=== PATIENT | female | born 1980 | race Two or more races ===

== ENCOUNTER → 2018-01-27 05:41 | Outpatient (CLI) | payer OTHER | END | disposition home or self-care (01) | LOC: OBT 01-26 22:05 | DX: O62.9 Abnormality of forces of labor, unspecified (principal); O34.219 Maternal care for unspecified type scar from previous cesarean delivery; O24.419 Gestational diabetes mellitus in pregnancy, unspecified control; O09.523 Supervision of elderly multigravida, third trimester; Z3A.38 38 weeks gestation of pregnancy | CPT/HCPCS: 36415; 81001; 81003; 96360; 96361; 96372 ==

== ENCOUNTER 2018-01-27 14:41 | Inpatient (IN) | payer OTHER ==
[2018-01-27 17:30] LABS: ADD MAN DIFF? NO
[2018-01-27] MEDS ORDERED: METHYLERGONOVINE 0.2 MG INJ IM (17:30)
[2018-01-27] MEDS ORDERED: OXYTOCIN 30 UNITS/LR 500 ML IV ×2 (17:30→20:06)
[2018-01-27] MEDS: LACTATED RINGER'S 1,000 ML IV (17:30)
[2018-01-27] MEDS ORDERED: CARBOPROST 250 MCG INJ IM (17:30)
[2018-01-27] MEDS ORDERED: MISOPROSTOL 200 MCG TAB PR (17:30)
[2018-01-27 17:32] LABS: BASOPHILS % 0.3 % (0.0-2.0); EOSINOPHILS % 0.6 % (0.0-7.0); HEMATOCRIT 36.3 % (37.0-47.0); HEMOGLOBIN 12.5 g/dl (12.0-16.0); LYMPHOCYTES # 1.9 10^3/ul (0.8-2.9); LYMPHOCYTES % 27.4 % (15.0-51.0); MEAN CORPUSCULAR HEMOGLOBIN 29.3 pg (29.0-33.0); MEAN CORPUSCULAR HGB CONC 34.4 g/dl (32.0-37.0); MEAN PLATELET VOLUME 10.6 fl (7.4-10.4); MONOCYTE # 0.6 10^3/ul (0.3-0.9); MONOCYTES % 8.8 % (0.0-11.0); NEUTROPHIL # 4.2 10^3/ul (1.6-7.5); NEUTROPHILS % 61.7 % (39.0-77.0); PLATELET COUNT 210 10^3/UL (140-415); RED BLOOD COUNT 4.27 10^6/ul (4.20-5.40); RED CELL DISTRIBUTION WIDTH 13.9 % (11.5-14.5)
[2018-01-27 17:32] LABS: WHITE BLOOD COUNT 6.8 10^3/ul (4.8-10.8)
[2018-01-27 17:51] LABS: INR 0.91; PROTIME 12.3 Sec (11.9-14.9)
[2018-01-27 17:53] LABS: PARTIAL THROMBOPLASTIN TIME 28.3 Sec (25.0-35.0)
[2018-01-27 18:20] LABS: HEPATITIS B SURFACE ANTIGEN NEGATIVE (NEGATIVE)
[2018-01-27] MEDS ORDERED: EPHEDrine SULFATE 50 MG/5 ML SYG (20:06)
[2018-01-27] MEDS ORDERED: OXYTOCIN 10 UNIT INJ ×2 (20:07→20:13)
[2018-01-27] MEDS ORDERED: METOCLOPRAMIDE 10 MG INJ (20:07)
[2018-01-27] MEDS ORDERED: ONDANSETRON 4 MG INJ (20:07)
[2018-01-27] MEDS ORDERED: morphine SULFATE/PF (10 MG/10 ML) INJ (20:07)
[2018-01-27] MEDS ORDERED: BUPIVACAINE 0.75%/DEXT (SPINAL) 2 ML INJ (20:08)
[2018-01-27] MEDS ORDERED: NALOXONE (0.4 MG/ML) INJ IV (22:00)
[2018-01-27] MEDS ORDERED: ONDANSETRON 4 MG INJ IV (22:00)
[2018-01-27] MEDS ORDERED: EPHEDrine SULFATE 50 MG/5 ML SYG IV (22:00)
[2018-01-27] MEDS ORDERED: morphine 2 MG INJ IV ×2 (22:00)
[2018-01-27] MEDS: morphine SULFATE/PF (10 MG/10 ML) INJ SPINAL (22:18)
[2018-01-27] MEDS: OXYTOCIN 30 UNITS/LR 500 ML IV (22:18)
[2018-01-27] MEDS: CEFAZOLIN 2 GM/50 ML (PMX) 50 ML IV (22:19)
[2018-01-27 22:29] LABS: RAPID PLASMA REAGIN NONREACTIVE (NR)
[2018-01-27] MEDS: KETOROLAC 30 MG INJ IV (23:00)
[2018-01-27] MEDS: DIPHENHYDRAMINE 50 MG INJ IV (23:00)
[2018-01-28] MEDS ORDERED: METHYLERGONOVINE 0.2 MG INJ IM
[2018-01-28] MEDS ORDERED: MISOPROSTOL 200 MCG TAB PR
[2018-01-28] MEDS ORDERED: OXYCODONE/ACETAMINOPHEN (5/325) TAB PO
[2018-01-28] MEDS ORDERED: OXYTOCIN 30 UNITS/LR 500 ML IV
[2018-01-28] MEDS ORDERED: ZOLPIDEM 5 MG TAB PO
[2018-01-28] MEDS ORDERED: CARBOPROST 250 MCG INJ IM
[2018-01-28] MEDS ORDERED: DIPHENHYDRAMINE 50 MG INJ IV
[2018-01-28] MEDS: LACTATED RINGER'S 1,000 ML IV ×4 (02:43→23:52)
[2018-01-28] MEDS: KETOROLAC 30 MG INJ IV ×3 (04:53→17:40)
[2018-01-28] MEDS: LANOLIN 7 GM TUBE TOP (04:54)
[2018-01-28] MEDS: IBUPROFEN 600 MG TAB PO ×5 (06:00→23:24)
[2018-01-28 07:18] LABS: ADD MAN DIFF? NO
[2018-01-28 07:21] LABS: WHITE BLOOD COUNT 9.3 10^3/ul (4.8-10.8)
[2018-01-28 07:21] LABS: BASOPHILS % 0.3 % (0.0-2.0); EOSINOPHILS % 0.4 % (0.0-7.0); HEMATOCRIT 33.4 % (37.0-47.0); HEMOGLOBIN 11.4 g/dl (12.0-16.0); LYMPHOCYTES # 1.4 10^3/ul (0.8-2.9); LYMPHOCYTES % 14.6 % (15.0-51.0); MEAN CORPUSCULAR HEMOGLOBIN 28.6 pg (29.0-33.0); MEAN CORPUSCULAR HGB CONC 34.1 g/dl (32.0-37.0); MEAN CORPUSCULAR VOLUME 83.9 fl (82.0-101.0); MEAN PLATELET VOLUME 11.3 fl (7.4-10.4); MONOCYTE # 0.7 10^3/ul (0.3-0.9); MONOCYTES % 7.4 % (0.0-11.0); NEUTROPHIL # 7.1 10^3/ul (1.6-7.5); NEUTROPHILS % 76.8 % (39.0-77.0); PLATELET COUNT 174 10^3/UL (140-415); RED BLOOD COUNT 3.98 10^6/ul (4.20-5.40); RED CELL DISTRIBUTION WIDTH 13.7 % (11.5-14.5)
[2018-01-28] MEDS: ONDANSETRON 4 MG INJ IV (08:26)
[2018-01-28] MEDS: SENNA/DOCUSATE NA (8.6MG/50MG) TAB PO ×2 (10:11→21:17)
[2018-01-28] MEDS: OXYCODONE/ACETAMINOPHEN (5/325) TAB PO (21:51)
[2018-01-29] MEDS: OXYCODONE/ACETAMINOPHEN (5/325) TAB PO ×3 (03:28→21:45)
[2018-01-29] MEDS: IBUPROFEN 600 MG TAB PO ×4 (05:34→23:44)
[2018-01-29] MEDS: SENNA/DOCUSATE NA (8.6MG/50MG) TAB PO ×2 (09:09→21:10)
[2018-01-30] MEDS: OXYCODONE/ACETAMINOPHEN (5/325) TAB PO ×2 (01:38→09:21)
[2018-01-30] MEDS: IBUPROFEN 600 MG TAB PO ×2 (05:50→13:10)
[2018-01-30] MEDS: SENNA/DOCUSATE NA (8.6MG/50MG) TAB PO (09:17)
[2018-01-30] MEDS: DIPHTH/TET/ACEL PERTUSS (ADULT) 0.5 ML VIAL IM* (13:11)
== END 2018-01-30 14:20 | disposition home or self-care (01) | DRG 766 ==
LOC: OBT 14:41 → PP1 01-28 00:50 → L-D 14:41 → OBT 17:00 → L-D 17:00
PROVIDERS: Obstetrics & Gynecology
PROC: 10D00Z1 Extraction of Products of Conception, Low, Open Approach (ICD-10-PCS; principal; 2018-01-27 20:00)
PROC: 0UB70ZZ Excision of Bilateral Fallopian Tubes, Open Approach (ICD-10-PCS; 2018-01-27 20:00)
DX: O34.219 Maternal care for unspecified type scar from previous cesarean delivery (principal); O24.420 Gestational diabetes mellitus in childbirth, diet controlled; Z3A.38 38 weeks gestation of pregnancy; Z37.0 Single live birth; Z30.2 Encounter for sterilization; Z23 Encounter for immunization
CPT/HCPCS: 85025; 85610; 85730; 86592; 86850; 86900; 86901; 87340; 88302; 90715; 99464